=== PATIENT | female | born 1970 | race Caucasian/White ===

== ENCOUNTER 2017-07-25 18:14 | Emergency (ER) | payer OTHER ==
[~2017-07-25] VITALS: Ht 170.2 cm; Wt 98.6 kg
[~2017-07-25 18:14] MED LIST: OXYC-360 PO; PHEN37.5 PO; SYNT25TA PO
[2017-07-25 18:17] VITALS: BP 127/85; PULSE 67; RESP 18; TEMP 98.2; O2SAT 97
[2017-07-25] MEDS ORDERED: SODIUM CHLOR 0.9% 1000 ML INJ 1,000 ML IV ONE (19:22)
[2017-07-25] MEDS ORDERED: diphenhydrAMINE HCL 50 MG/ML VIAL IVP ONE (19:30)
[2017-07-25] MEDS ORDERED: KETOROLAC TROMETHAMINE 30 MG/ML (IVP) VIAL IVP ONE (19:30)
[2017-07-25] MEDS ORDERED: SODIUM CHLORIDE 0.9% FLUSH 10 ML FLUSH IVF PRN (19:30)
[2017-07-25] MEDS ORDERED: PROCHLORPERAZINE INJ 10 MG/2 ML VIAL IVP ONE (19:30)
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
[2017-07-25] MEDS ORDERED: MONT10TA4 PO (20:16)
[2017-07-25] MEDS ORDERED: LEVO-154 PO (20:16)
[2017-07-25] MEDS ORDERED: RANI1TAB7 PO (20:16)
[2017-07-25] MEDS ORDERED: CETI10 PO (20:16)
[2017-07-25] MEDS ORDERED: NAPR500T PO (20:55)
[2017-07-25 21:00] VITALS: BP 143/89; TEMP 98.4
== END 2017-07-25 21:07 | disposition home or self-care (01) ==
LOC: PHED 18:14
DX: G43.009 Migraine without aura, not intractable, without status migrainosus (principal); H53.149 Visual discomfort, unspecified; R11.0 Nausea
CPT/HCPCS: 96361; 96374; 96375; 99284; J0780; J1200; J1885; J7030